=== PATIENT | female | born 2000 | race Hispanic/Latino ===

== ENCOUNTER 2022-01-01 09:11 | Emergency (ER) | payer OTHER, SELFPAY ==
[2022-01-01 09:31] VITALS: BP 113/69; PULSE 72; RESP 16; TEMP 37.1; O2SAT 99; BMI 17.6
[2022-01-01] MEDS: IBUPROFEN 400 MG TABLET PO ×2 (09:50→10:56)
[2022-01-01] MEDS: methocarbamoL 500 MG TABLET 750 MG PO (10:56)
--- NOTE | 2022-01-01 11:51 | ED_ITS ---
HPI - Back Pain/Injury General Chief Complaint: Back Pain/Injury Stated Complaint: Hurt back at work Time Seen by Provider: 01/01/22 10:32 Source: patient Mode of arrival: Ambulatory Limitations: no limitations History of Present Illness HPI Narrative: The patient presents with left lower back pain. 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 Whileassisting with the transfer, she felt a pop in her low back. Pain is spasm persist. She is not taking medications. She has no history of chronic back issues. She has no incontinence, no numbness or weakness in her lower extremities. She has increased discomfort with back movement. She has no dysuria hematuria. She is not . She has no chronic medical issues. Related Data Previous Rx's Medication Instructions Recorded methocarbamol 750 mg tablet 750 mg PO Q6H PRN #40 tab 01/01/22 Allergies Allergy/AdvReac Type Severity Reaction Status Date / Time No Known Drug Allergies Allergy Verified 01/01/22 09:31 Review of Systems Constitutional Constitutional: Denies body ache(s), Denies chills, Denies fever(s) and Denies headache(s) Comments: No recent illness. ENT Ears, Nose, Mouth, and Throat: Denies headache(s) Genitourinary Comments: No dysuria, no hematuria, she is not . Musculoskeletal Musculoskeletal: Reports as per HPI Neurologic Neurologic: Denies headache(s) Comments: No lower extremity numbness or weakness. Patient History Medical History (Updated 01/01/22 @ 12:05 by Bj Hutchison MD) No chronic diseases present Surgical History (Updated 01/01/22 @ 12:01 by Bj Hutchison MD) No significant past surgical history Social History Smoking Status: Never smoker Smoking Status: Never smoker alcohol intake frequency: 0-2 drinks per day Substance Use Type: does not use Exam Initial Vital Signs Initial Vital Signs: Vital Signs Temperature 98.7 F 01/01/22 09:31 Pulse Rate 72 01/01/22 09:31 Respiratory Rate 16 01/01/22 09:31 Blood Pressure 113/69 01/01/22 09:31 Pulse Oximetry 99 01/01/22 09:31 Const General: cooperative, healthy appearing and other (Uncomfortable) [facility] Head: normal to inspection, normocephalic and atraumatic GI Inspection: normal to inspection Palpation: soft Percussion: normal to percussion Auscultation: normal bowel sounds Back/Spine/Pelvis Back: normal to inspection Other: Palpable tenderness not forming over the L-spine. Left paraspinal tenderness with spasm. No SI tenderness. Mild restriction of rotational motion due to spasm. Skin General: no rashes or lesions noted Neuro General: patient alert, patient awake, patient oriented x3, no focal motor deficits and other (Straight leg raise is normal bilaterally) Course Course Course Narrative: The patient has lumbar strain. She has left paraspinal pain with spasm. She has been started on ibuprofen and Robaxin and discharged on the same medications. Orders Ordered: Discontinued Medications Acetaminophen (Acetaminophen 325 Mg Tablet) 975 mg PO NOW ONE Stop: 01/01/22 09:40 Last Admin: 01/01/22 10:41 Dose: Not Given Documented by: [place] Ibuprofen (Ibuprofen 400 Mg Tablet) 400 mg PO NOW ONE Stop: 01/01/22 09:40 Last Admin: 01/01/22 09:50 Dose: 400 mg Documented by: [place] Ibuprofen (Ibuprofen 400 Mg Tablet) 400 mg PO NOW ONE Stop: 01/01/22 10:33 Last Admin: 01/01/22 10:56 Dose: 400 mg Documented by: [place] Methocarbamol (Methocarbamol 500 Mg Tablet) 750 mg PO NOW ONE Stop: 01/01/22 10:33 Last Admin: 01/01/22 10:56 Dose: 750 mg Documented by: [place] Vital Signs Vital signs: Vital Signs - 8 hr 01/01/22 09:31 Temperature 98.7 F Pulse Rate 72 Respiratory Rate 16 Blood Pressure 113/69 Pulse Oximetry 99 Discharge Plan Departure Patient Disposition: Home Clinical Impression: Strain of lumbar region Instructions: DI for Muscle Strain Activity Restrictions/Additional Instructions: Advil 3 tablets every 6 hours as needed for pain. Robaxin every 6 hours for spasm. Take the medications together. Apply ice packs to her back frequently for the next 2 days. No work for 3 days, follow-up with your doctor next week if problems persist. Return here as needed. Prescriptions: New methocarbamol 750 mg tablet 750 mg PO Q6H PRN (Reason: spasms) Qty: 40 0RF Stand Alone Forms: School Release Note
== END 2022-01-01 12:26 | disposition home or self-care (01) ==
PROVIDERS: Emergency Provider Emergency Medicine
DX: S39.012A Strain of muscle, fascia and tendon of lower back, initial encounter (principal); X50.0XXA Overexertion from strenuous movement or load, initial encounter; Y99.0 Civilian activity done for income or pay
CPT/HCPCS: 99283